=== PATIENT | female | born 1965 | race Caucasian/White ===

== ENCOUNTER 2019-07-13 22:26 | Observation (INO) | payer MEDICAID ==
[2019-07-13] MEDS ORDERED: SODIUM CHLORIDE 0.9% 2,000 ML IV STA (22:48)
[2019-07-13] MEDS ORDERED: ONDANSETRON 4 MG/2 ML VIAL IVP STA (22:48)
[2019-07-13 23:01] LABS: Basophils % (A) 0 %; Eosinophils # (A) 0.2 k/uL (0-0.7); Eosinophils % (A) 1 %; HCT 37.7 % (34.0-46.0); HGB 13.1 gm/dL (11.4-16.0); Lymphocytes % (A) 6 %; MCHC 34.8 g/dL (31.0-37.0); MCV 86.2 fL (80.0-100.0); Mean Platelet Volume 6.5; Monocytes # (A) 0.7 k/uL (0-1.0); Monocytes % (A) 4 %; Neutrophils # (A) 14.7 k/uL (1.3-7.7); Neutrophils % (A) 89 %; Platelet Count 381 k/uL (150-450); RBC 4.38 m/uL (3.80-5.40); RDW 12.5 % (11.5-15.5); WBC 16.6 k/uL (3.8-10.6)
[2019-07-13 23:10] LABS: ALT 18 U/L (9-52); AST 26 U/L (14-36); African American GFR (CKD) >90 (>60 ml/min/1.73 sqM); Albumin 4.6 g/dL (3.5-5.0); Alkaline Phosphatase 85 U/L (38-126); Amylase 107 U/L (30-110); Anion Gap 12 mmol/L; Blood Urea Nitrogen 10 mg/dL (7-17); Calcium 9.8 mg/dL (8.4-10.2); Carbon Dioxide 22 mmol/L (22-30); Chloride 105 mmol/L (98-107); Glucose 157 mg/dL (74-99); Potassium 4.1 mmol/L (3.5-5.1); Sodium 139 mmol/L (137-145); Total Bilirubin 0.4 mg/dL (0.2-1.3); Total Protein 7.7 g/dL (6.3-8.2)
--- NOTE | 2019-07-13 23:42 | ED ---
Abdominal Pain HPI - General Source: patient, RN notes reviewed Mode of arrival: ambulatory Limitations: no limitations <Zi Reed - Last Filed: 07/14/19 00:35> <Candice Angulo - Last Filed: 07/14/19 21:43> - General Chief Complaint: Abdominal Pain Stated Complaint: Rt flank pain Time Seen by Provider: 07/13/19 22:34 - History of Present Illness Initial Comments: 54-year-old female presents emergency Department chief complaint of right flank pain. Patient states that this pain started earlier today she had nonstop vomiting. Patient states that she's never had any pain like this in the past. No history kidney stones. Patient's had 3 sections no other abdominal surgeries. Patient reports no fevers chills she denies any known dysuria hematuria diarrhea constipation no chest pain or shortness of breath. Patient states that makes the pain feel better or worse at this time. (Zi Reed) - Related Data Previous Rx's Medication Instructions Recorded Hydrocodone/Acetaminophen [[place] 1 tab PO Q4HR PRN 3 Days #18 tab 07/14/19 5-325] Allergies Allergy/AdvReac Type Severity Reaction Status Date / Time No Known Allergies Allergy Verified 07/14/19 11:25 Review of Systems ROS Other: All systems not noted in ROS Statement are negative. <Zi Reed - Last Filed: 07/14/19 00:35> ROS Other: All systems not noted in ROS Statement are negative. <Candice Angulo - Last Filed: 07/14/19 21:43> ROS Statement: Those systems with pertinent positive or pertinent negative responses have been documented in the HPI. Past Medical History Past Medical History: Atrial Fibrillation, Asthma, Osteoarthritis (OA) Additional Past Medical History / Comment(s): irregular heart rate. has had low BP, constipation, blood in stool, hx anemia History of Any Multi-Drug Resistant Organisms: None Reported Past Surgical History: Back Surgery, Cardiac Ablation, Section, Heart Catheterization, Tonsillectomy, Tubal Ligation, Uterine Ablation Additional Past Surgical History / Comment(s): c6-c7 fusion, d&c, loop recorder Past Anesthesia/Blood Transfusion Reactions: Family History of Problems w/ Anesthesia Additional Past Anesthesia/Blood Transfusion Reaction / Comment(s): BROTHER HAS PONV. Past Psychological History: No Psychological Hx Reported Smoking Status: Never smoker Past Alcohol Use History: None Reported Past Drug Use History: None Reported - Past Family History Mother Family Medical History: Cancer, Deep Vein Thrombosis (DVT) Additional Family Medical History / Comment(s): BLADDER,PANCREATIC Father Family Medical History: Coronary Artery Disease (CAD) Additional Family Medical History / Comment(s): CABG-3 VESSELS Brother(s) Family Medical History: Coronary Artery Disease (CAD) Additional Family Medical History / Comment(s): 2 BROTHERS with stents <Zi Reed - Last Filed: 07/14/19 00:35> General Exam Limitations: no limitations General appearance: alert, in no apparent distress Head exam: Present: atraumatic, normocephalic, normal inspection Respiratory exam: Present: normal lung sounds bilaterally. Absent: respiratory distress, wheezes, rales, rhonchi, stridor Cardiovascular Exam: Present: regular rate, normal rhythm, normal heart sounds. Absent: systolic murmur, diastolic murmur, rubs, gallop, clicks GI/Abdominal exam: Present: soft, tenderness, normal bowel sounds. Absent: distended, guarding, rebound, rigid Back exam: Absent: CVA tenderness (R), CVA tenderness (L) Skin exam: Present: warm, dry, intact, normal color. Absent: rash <Zi Reed - Last Filed: 07/14/19 00:35> Course Vital Signs 07/13/19 07/13/19 07/14/19 22:30 23:08 00:00 Temperature 97.9 F 97.7 F Pulse Rate 65 64 78 Respiratory 20 16 16 Rate Blood Pressure 126/80 149/72 129/58 O2 Sat by Pulse 99 95 98 Oximetry Medical Decision Making - Lab Data Result diagrams: 07/13/19 22:46 07/13/19 22:46 <Zi Reed - Last Filed: 07/14/19 00:35> - Lab Data Result diagrams: 07/13/19 22:46 07/13/19 22:46 <Candice Angulo - Last Filed: 07/14/19 21:43> - Medical Decision Making 54-year-old female presented for right-sided abdominal pain and right flank pain. Patient did have labs and CT CT shows evidence of acute appendicitis. Patient was started on Zosyn. Patient will be admitted to Dr. Siegel as his PCP is Dr. Lima. Patient will be kept nothing by mouth (Zi Reed) Patient's primary care physician Dr. Lima prefers the patient be admitted to Dr. Franklin for surgical consult however Dr. Franklin unavailable this evening and Dr. Marie was consult that he accepts the admission. (Candice Angulo) - Lab Data Lab Results 07/13/19 07/13/19 07/13/19 Range/Units 22:46 22:46 22:46 WBC 16.6 H (3.8-10.6) k/uL RBC 4.38 (3.80-5.40) m/uL Hgb 13.1 (11.4-16.0) gm/dL Hct 37.7 (34.0-46.0) % MCV 86.2 (80.0-100.0) fL MCH 30.0 (25.0-35.0) pg MCHC 34.8 (31.0-37.0) g/dL RDW 12.5 (11.5-15.5) % Plt Count 381 (150-450) k/uL Neutrophils % 89 % Lymphocytes % 6 % Monocytes % 4 % Eosinophils % 1 % Basophils % 0 % Neutrophils # 14.7 H (1.3-7.7) k/uL Lymphocytes # 1.0 (1.0-4.8) k/uL Monocytes # 0.7 (0-1.0) k/uL Eosinophils # 0.2 (0-0.7) k/uL Basophils # 0.0 (0-0.2) k/uL Sodium 139 (137-145) mmol/L Potassium 4.1 (3.5-5.1) mmol/L Chloride 105 (98-107) mmol/L Carbon Dioxide 22 (22-30) mmol/L Anion Gap 12 mmol/L BUN 10 (7-17) mg/dL Creatinine 0.63 (0.52-1.04) mg/dL Est GFR (CKD-EPI)AfAm >90 (>60 ml/min/1.73 sqM) Est GFR (CKD-EPI)NonAf >90 (>60 ml/min/1.73 sqM) Glucose 157 H (74-99) mg/dL Plasma Lactic Acid Valdo 1.1 (0.7-2.0) mmol/L Calcium 9.8 (8.4-10.2) mg/dL Total Bilirubin 0.4 (0.2-1.3) mg/dL AST 26 (14-36) U/L ALT 18 (9-52) U/L Alkaline Phosphatase 85 (38-126) U/L Total Protein 7.7 (6.3-8.2) g/dL Albumin 4.6 (3.5-5.0) g/dL Amylase 107 (30-110) U/L Lipase 117 (23-300) U/L Disposition <Zi Reed M - Last Filed: 07/14/19 00:35> <Candice Angulo - Last Filed: 07/14/19 21:43> Clinical Impression: Acute appendicitis Disposition: ADMITTED IP TO THIS HOSP Condition: Fair
--- NOTE | 2019-07-14 00:09 | CT ---
INDICATION: Abdominal pain TECHNIQUE: CT acquisition is performed through the abdomen and pelvis following the administration of 85 mL Isovue-370 IV contrast. Sagittal and coronal reformatted images are provided. DOSE INFORMATION: DLP 669 mGy-cm. This CT exam was performed using one or more of the following dose reduction techniques: automated exposure control, adjustment of the mA and/or kV according to patient size, and/or use of iterative reconstruction technique. COMPARISON: None. FINDINGS: The lung bases are clear. The liver, gallbladder, spleen, pancreas, and adrenal glands are unremarkable. Aorta and IVC are normal. There is no adenopathy. There is no evidence of small or large bowel obstruction. The appendix is enlarged measuring 11 mm there is mild periappendiceal fat stranding. There is no free air or abscess. There are scattered colonic diverticula without evidence of acute diverticulitis. There is mild haziness of the urinary bladder wall. Uterus is unremarkable. There are no acute osseous findings. There is moderate degenerative disc disease at L5-S1. IMPRESSION: 1. Enlarged appendix measuring 11 mm with mild periappendiceal fat stranding. Findings could represent acute appendicitis in the proper clinical setting. 2. Haziness of the urinary bladder wall, correlate with urinalysis for possible cystitis. <MYCVCSECTION> Critical Value Communications 07/14/19 00:12 Call Doctor Regarding Appendicitis, called Dr. Angulo on 07/14 00:12 (-04:00)
[2019-07-14] MEDS ORDERED: PIPERACILLIN-TAZOBACTAM 3.375 GM in SODIUM CHLORIDE 0.9% 100 ML IVPB STA (00:18)
[2019-07-14] MEDS ORDERED: HYDROmorphone 1 MG/ML 1 ML SYRINGE IVP PRN (00:36)
[2019-07-14] MEDS ORDERED: NALOXONE 0.4 MG/ML 1 ML VIAL IV PRN (00:36)
[2019-07-14] MEDS ORDERED: ONDANSETRON 4 MG/2 ML VIAL IVP PRN ×2 (00:36→18:51)
[2019-07-14] MEDS: HYDROmorphone 0.5 MG/0.5 ML SYRINGE IVP PRN ×2 (00:40→14:08)
[2019-07-14 02:21] VITALS: BMI 24.7
[2019-07-14] MEDS: SODIUM CHLORIDE 0.9% 1,000 ML IV SCH ×3 (02:22→23:20)
[2019-07-14] MEDS: PIPERACILLIN-TAZOBACTAM 3.375 GM in SODIUM CHLORIDE 0.9% 100 ML IVPB SCH ×3 (07:34→23:19)
--- NOTE | 2019-07-14 08:01 | P.GSHP ---
<Reyna Mabry A - Last Filed: 07/14/19 07:58> History of Present Illness H&P Date: 07/14/19 Chief Complaint: abdominal pain CHIEF COMPLAINT: Abdominal pain HISTORY OF PRESENT ILLNESS: 54 year old female who presents to the hospital with a chief complaint of abdominal pain. She reports right lower quadrant pain that has been intermittent over the last week. Due to the pain coming and going, she did not seek medical evaluation. Yesterday, around noon the pain increased in severity and was constant. She reports nausea and multiple episodes of emesis yesterday. Denies fever at home. She is currently resting comfortably. She reports increased pain when she attempts to straighten her right leg. She rates her pain a 8/10 but reports just receiving Dilaudid which has been controlling her pain. PAST MEDICAL HISTORY: See list. PAST SURGICAL HISTORY: See list. SOCIAL HISTORY: No illicit drug use. REVIEW OF SYSTEMS: CONSTITUTIONAL: Denies fever or chills. HEENT: Denies blurred vision, vision changes, or eye pain. Denies hemoptysis CARDIOVASCULAR: Denies chest pain or pressure. RESPIRATORY: No shortness of breath. GASTROINTESTINAL: Refer to HPI for pertinent findings HEMATOLOGIC: Denies bleeding disorders. GENITOURINARY: Denies any blood in urine. SKIN: Denies pruitis. Denies rash. PHYSICAL EXAM: VITAL SIGNS: Reviewed. GENERAL: Well-developed in no acute distress. HEENT: No sclera icterus. Extraocular movements grossly intact. Moist buccal mucosa. Head is atraumatic, normocephalic. ABDOMEN: Soft. Nondistended. Tenderness to right lower quadrant. Positive bowel sounds. No signs of peritonitis. NEUROLOGIC: Alert and oriented. Cranial nerves II through XII grossly intact. LABORATORY DATA: Laboratory data upon admission reveals white count 16.6. Hemoglobin 13.1. Lactic acid 1.1. IMAGING: CT abdomen and pelvis: Enlarged appendix measuring 11 mm with mild periappendiceal fat stranding. Findings may represent acute appendicitis. ASSESSMENT: 1. Abdominal pain 2. Acute appendicitis 3. Leukocytosis PLAN: 1. Nothing by mouth. Continue IV fluids 2. Pain control 3. Continue antibiotics. Monitor WBC 4. Patient to undergo laparoscopic appendectomy today with Dr. Marie. Nurse practitioner note has been reviewed by physician. Signing provider agrees with the documented findings, assessment, and plan of care. Past Medical History Past Medical History: Atrial Fibrillation, Asthma, Osteoarthritis (OA) Additional Past Medical History / Comment(s): irregular heart rate. has had low BP, constipation, blood in stool, hx anemia History of Any Multi-Drug Resistant Organisms: None Reported Past Surgical History: Back Surgery, Cardiac Ablation, Section, Heart Catheterization, Tonsillectomy, Tubal Ligation, Uterine Ablation Additional Past Surgical History / Comment(s): c6-c7 fusion, d&c, loop recorder Past Anesthesia/Blood Transfusion Reactions: Family History of Problems w/ Anesthesia Additional Past Anesthesia/Blood Transfusion Reaction / Comment(s): BROTHER HAS PONV. Past Psychological History: No Psychological Hx Reported Smoking Status: Never smoker Past Alcohol Use History: None Reported Past Drug Use History: None Reported - Past Family History Mother Family Medical History: Cancer, Deep Vein Thrombosis (DVT) Additional Family Medical History / Comment(s): BLADDER,PANCREATIC Father Family Medical History: Coronary Artery Disease (CAD) Additional Family Medical History / Comment(s): CABG-3 VESSELS Brother(s) Family Medical History: Coronary Artery Disease (CAD) Additional Family Medical History / Comment(s): 2 BROTHERS with stents Medications and Allergies Home Medications Medication Instructions Recorded Confirmed Type Albuterol Inhaler [Ventolin Hfa 2 puff INHALATION Q4HR PRN 06/25/14 02/04/16 History Inhaler] Multivitamins, Thera [Multivitamin] 1 tab PO DAILY 01/30/16 02/04/16 History Allergies Allergy/AdvReac Type Severity Reaction Status Date / Time No Known Allergies Allergy Verified 07/13/19 22:31 Surgical - Exam Vital Signs Temp Pulse Resp BP Pulse Ox 97.9 F 65 20 126/80 99 07/13/19 22:30 07/13/19 22:30 07/13/19 22:30 07/13/19 22:30 07/13/19 22:30 Results - Labs 07/13/19 22:46 07/13/19 22:46 Abnormal Lab Results - Last 24 Hours (Table) 07/13/19 07/13/19 Range/Units 22:46 22:46 WBC 16.6 H (3.8-10.6) k/uL Neutrophils # 14.7 H (1.3-7.7) k/uL Glucose 157 H (74-99) mg/dL Diabetes panel 07/13/19 Range/Units 22:46 Sodium 139 (137-145) mmol/L Potassium 4.1 (3.5-5.1) mmol/L Chloride 105 (98-107) mmol/L Carbon Dioxide 22 (22-30) mmol/L BUN 10 (7-17) mg/dL Creatinine 0.63 (0.52-1.04) mg/dL Glucose 157 H (74-99) mg/dL Calcium 9.8 (8.4-10.2) mg/dL AST 26 (14-36) U/L ALT 18 (9-52) U/L Alkaline Phosphatase 85 (38-126) U/L Total Protein 7.7 (6.3-8.2) g/dL Albumin 4.6 (3.5-5.0) g/dL Calcium panel 07/13/19 Range/Units 22:46 Calcium 9.8 (8.4-10.2) mg/dL Albumin 4.6 (3.5-5.0) g/dL Pituitary panel 07/13/19 Range/Units 22:46 Sodium 139 (137-145) mmol/L Potassium 4.1 (3.5-5.1) mmol/L Chloride 105 (98-107) mmol/L Carbon Dioxide 22 (22-30) mmol/L BUN 10 (7-17) mg/dL Creatinine 0.63 (0.52-1.04) mg/dL Glucose 157 H (74-99) mg/dL Calcium 9.8 (8.4-10.2) mg/dL Adrenal panel 07/13/19 Range/Units 22:46 Sodium 139 (137-145) mmol/L Potassium 4.1 (3.5-5.1) mmol/L Chloride 105 (98-107) mmol/L Carbon Dioxide 22 (22-30) mmol/L BUN 10 (7-17) mg/dL Creatinine 0.63 (0.52-1.04) mg/dL Glucose 157 H (74-99) mg/dL Calcium 9.8 (8.4-10.2) mg/dL Total Bilirubin 0.4 (0.2-1.3) mg/dL AST 26 (14-36) U/L ALT 18 (9-52) U/L Alkaline Phosphatase 85 (38-126) U/L Total Protein 7.7 (6.3-8.2) g/dL Albumin 4.6 (3.5-5.0) g/dL <JjmarciKartik - Last Filed: 07/14/19 09:55> History of Present Illness As above. Patient with abdominal pain intermittently over the last week or so. Over the last 24 hours has had increased nausea vomiting and right lower quadrant pain persistently. White blood cell count is elevated. CAT scan reviewed and does show inflammatory changes of the appendix. We'll proceed with laparoscopic, possible open appendectomy at this time. Risks of bleeding, infection, abscess, bladder bowel and ureteral injury, conversion to an open procedure, hernia reviewed. She understands and wishes to proceed. Surgical - Exam Vital Signs Temp Pulse Resp BP Pulse Ox 97.9 F 65 20 126/80 99 07/13/19 22:30 07/13/19 22:30 07/13/19 22:30 07/13/19 22:30 07/13/19 22:30 Results - Labs 07/13/19 22:46 07/13/19 22:46 Abnormal Lab Results - Last 24 Hours (Table) 07/13/19 07/13/19 Range/Units 22:46 22:46 WBC 16.6 H (3.8-10.6) k/uL Neutrophils # 14.7 H (1.3-7.7) k/uL Glucose 157 H (74-99) mg/dL Diabetes panel 07/13/19 Range/Units 22:46 Sodium 139 (137-145) mmol/L Potassium 4.1 (3.5-5.1) mmol/L Chloride 105 (98-107) mmol/L Carbon Dioxide 22 (22-30) mmol/L BUN 10 (7-17) mg/dL Creatinine 0.63 (0.52-1.04) mg/dL Glucose 157 H (74-99) mg/dL Calcium 9.8 (8.4-10.2) mg/dL AST 26 (14-36) U/L ALT 18 (9-52) U/L Alkaline Phosphatase 85 (38-126) U/L Total Protein 7.7 (6.3-8.2) g/dL Albumin 4.6 (3.5-5.0) g/dL Calcium panel 07/13/19 Range/Units 22:46 Calcium 9.8 (8.4-10.2) mg/dL Albumin 4.6 (3.5-5.0) g/dL Pituitary panel 07/13/19 Range/Units 22:46 Sodium 139 (137-145) mmol/L Potassium 4.1 (3.5-5.1) mmol/L Chloride 105 (98-107) mmol/L Carbon Dioxide 22 (22-30) mmol/L BUN 10 (7-17) mg/dL Creatinine 0.63 (0.52-1.04) mg/dL Glucose 157 H (74-99) mg/dL Calcium 9.8 (8.4-10.2) mg/dL Adrenal panel 07/13/19 Range/Units 22:46 Sodium 139 (137-145) mmol/L Potassium 4.1 (3.5-5.1) mmol/L Chloride 105 (98-107) mmol/L Carbon Dioxide 22 (22-30) mmol/L BUN 10 (7-17) mg/dL Creatinine 0.63 (0.52-1.04) mg/dL Glucose 157 H (74-99) mg/dL Calcium 9.8 (8.4-10.2) mg/dL Total Bilirubin 0.4 (0.2-1.3) mg/dL AST 26 (14-36) U/L ALT 18 (9-52) U/L Alkaline Phosphatase 85 (38-126) U/L Total Protein 7.7 (6.3-8.2) g/dL Albumin 4.6 (3.5-5.0) g/dL
[2019-07-14] MEDS ORDERED: SODIUM CHLORIDE 0.9% 1,000 ML IV ONE (08:02)
[2019-07-14] MEDS ORDERED: IV FLUID CONTINUATION 400 ML IV ONE ×2 (09:34→09:36)
[2019-07-14] MEDS ORDERED: ONDANSETRON 4 MG/2 ML VIAL IVP ONE (09:45)
[2019-07-14] MEDS ORDERED: DEXAMETHASONE SOD PHOSPHATE 10 MG/ML 1 ML VIAL IV ONE (09:46)
[2019-07-14] MEDS ORDERED: HEPARIN SODIUM,PORCINE 5,000 UNIT/ML 1 ML VIAL SQ ONE (10:02)
[2019-07-14] MEDS ORDERED: BUPIVACAIN-EPI 0.25%-1:200,000 30 ML VIAL SQ ONE ×2 (10:06)
[2019-07-14] MEDS ORDERED: NEOSTIGMINE 1 MG/ML 10 ML VIAL ONE (10:07)
[2019-07-14] MEDS ORDERED: PHENYLEPHRINE-0.9% NACL SYG 1 MG/10 ML SYRINGE ONE (10:07)
[2019-07-14] MEDS ORDERED: PROPOFOL 10 MG/ML 20 ML VIAL IV ONE (10:07)
[2019-07-14] MEDS ORDERED: NALOXONE 0.4 MG/ML 1 ML VIAL ONE (10:07)
[2019-07-14] MEDS ORDERED: ROCURONIUM BROMIDE 10 MG/ML 10 ML VIAL IV ONE (10:07)
[2019-07-14] MEDS ORDERED: fentaNYL (PF) 50 MCG/ML 2 ML AMP ONE (10:07)
[2019-07-14] MEDS ORDERED: SUCCINYLCHOLINE CHLORIDE 100 MG/5 ML SYR IV ONE (10:07)
[2019-07-14] MEDS ORDERED: MIDAZOLAM 2 MG/2 ML VIAL ONE (10:07)
[2019-07-14] MEDS ORDERED: LIDOCAINE 1% INJ 10MG/ML (20 ML MDV) ONE (10:07)
[2019-07-14] MEDS ORDERED: GLYCOPYRROLATE 0.2 MG/ML 2 ML VIAL ONE (10:07)
[2019-07-14] MEDS ORDERED: LACTATED RINGERS 1,000 ML IV ONE (10:32)
[2019-07-14] MEDS: PANTOPRAZOLE 40 MG/10 ML VIAL IVP SCH (10:51)
[2019-07-14] MEDS ORDERED: HYDROcodone/APAP 7.5-325MG 1 EACH TAB PO PRN (11:08)
--- NOTE | 2019-07-14 11:19 | P.OP ---
Date of Procedure: 07/14/19 Procedure(s) Performed: PREOPERATIVE DIAGNOSIS: Acute appendicitis POSTOPERATIVE DIAGNOSIS: Same PROCEDURE: Laparoscopic appendectomy SURGEON: Frank EBL: 10 mL ANESTHESIA: General COMPLICATIONS: None OPERATIVE PROCEDURE: The patient was brought and placed on the operating table in the supine position. The patient was placed under general anesthesia. The abdomen was prepped and draped in the usual sterile fashion. A small vertical infraumbilical incision was made. The fascia was retracted anteriorly with [place] forceps. The Veress needle was advanced into the peritoneal cavity. The saline drop test was normal. Insufflation took place to 15 mmHg. A 5 mm trocar was then placed. An additional 5 mm suprapubic trocar was placed under direct visualization as well as a 12 mm left lower quadrant trocar under direct visualization. The appendix was inspected. It was acutely inflamed. The mesoappendix was dissected. The base of the appendix was divided using a linear 45 mm intestinal stapler. The mesentery itself was was divided using the ligature device. The area was then irrigated. No further purulence or bleeding was seen. The appendix was brought out of the peritoneal cavity through the left lower quadrant trocar site with an Endo Catch bag. The fascia at the 12 mm site was closed using a Hema-Lashaun [id number] 0 Vicryl stitch. The skin at all 3 sites was closed using 4-0 Monocryl sutures. Skin glue was then applied. DISPOSITION: Stable to recovery room
[2019-07-14] MEDS: KETOROLAC 30 MG/ML 1 ML VIAL IVP SCH ×3 (13:08→23:23)
[2019-07-14] MEDS: HEPARIN SODIUM,PORCINE 5,000 UNIT/ML 1 ML VIAL SQ SCH ×2 (17:13→23:19)
[2019-07-14] MEDS ORDERED: METOCLOPRAMIDE 5 MG/ML 2 ML VIAL IVP PRN (18:48)
--- NOTE | 2019-07-14 20:06 | CONS ---
CONSULTATION I am covering for Dr. Lima. DATE OF SERVICE: 07/14/2019 REASON FOR CONSULTATION: Advice regarding atrial fibrillation and other medical issues, requested by Dr. Marie. HISTORY OF PRESENT ILLNESS: This 54-year-old woman with a past medical history of atrial fibrillation, history of asthma, DJD, history of cardiac ablation, being followed by Dr. Dl Lima in the outpatient setting, underwent laparoscopic appendectomy for acute appendicitis. The patient is being closely monitored at this time. There is no history of any chest pain, history of history of palpitations, headache, loss of consciousness, nausea, vomiting, diarrhea, fever, rigors, chills at this time. PAST MEDICAL HISTORY: 1. Atrial fibrillation. 2. Asthma. 3. DJD. 4. History of back surgery. 5. Cardiac ablation. MEDICATIONS: [place] 5 mg q.4 p.r.n. ALLERGIES: NONE. FAMILY HISTORY: History of cancer, bladder, pancreatic. DVT. SOCIAL HISTORY: No history of smoking. No history of alcohol. REVIEW OF SYSTEMS: ENT: No diminished hearing. No diminished vision. CARDIOVASCULAR SYSTEM: No angina, palpitations. RESPIRATORY SYSTEM: No cough, hemoptysis. GI: As mentioned earlier. : No dysuria or retention. NERVOUS SYSTEM: No numbness, weakness. ALLERGY/IMMUNOLOGY: As mentioned earlier. MUSCULOSKELETAL: As mentioned earlier. HEMATOLOGY/ONCOLOGY: No history of anemia. ENDOCRINE: No history of diabetes, hypothyroidism. CONSTITUTIONAL: As mentioned earlier. DERMATOLOGY: Negative. RHEUMATOLOGY: Negative. PSYCHIATRY: As mentioned earlier. PHYSICAL EXAMINATION: Patient alert and oriented x3. Pulse 59, blood pressure 107/64, respirations 16, temperature 97.4, pulse ox 98% on room air. HEENT: Conjunctivae normal. Oral mucosa moist. NECK: No jugular venous distention. No carotid bruit. No lymph node enlargement. CARDIOVASCULAR SYSTEM: S1, S2 muffled. No S3. No S4. RESPIRATORY SYSTEM: Breath sounds diminished at the bases. No rhonchi. No crackles. ABDOMEN: Soft. Status post surgery. No guarding or rigidity. No mass palpable. LEGS: No edema. No swelling. NERVOUS SYSTEM: Higher functions as mentioned earlier. Moves all 4 limbs. No focal motor or sensory deficit. LYMPHATICS: No lymph node palpable in neck, axillae or groin. SKIN: No ulcer, rash, bleeding. JOINTS: No active deforming arthropathy. LABS: Labs at this time show WBC 16.6, hemoglobin 13.1 and glucose 157. ASSESSMENT: 1. Acute appendicitis, status post laparoscopic appendectomy. 2. Increased white count. 3. Increased random blood sugar. 4. History of atrial fibrillation, paroxysmal. 5. History of asthma, chronic, intermittent. 6. History of degenerative joint disease. 7. History of constipation. 8. History of back surgery, degenerative joint disease. 9. History of cardiac ablation. 10.History of C6-7 fusion. 11.History of loop recorder. 12.FULL CODE. RECOMMENDATIONS AND DISCUSSION: In this 54-year-old woman who presented after surgery, at this time I recommend to continue current management, continue symptomatic treatment. Resume the home medications. Monitor closely. Patient currently appears to be in sinus rhythm. Broad- spectrum IV antibiotics initiated. We will follow the patient closely with Dr. Marie. Further recommendations to follow. A copy of this dictation is being forwarded to Dr. Lima, who is the primary physician. DVT prophylaxis. Proton pump inhibitors. Incentive spirometry. MMODL / IJN: [id number] /
[2019-07-14 23:36] LABS: Appearance,Urine Clear (Clear); Bilirubin,Urine Negative (Negative); Blood,Urine Negative (Negative); Color,Urine Light Yellow; Glucose,Urine (UA) Negative (Negative); Ketones,Urine Negative (Negative); Leukocyte Esterase,Urine Negative (Negative); Nitrite,Urine Negative (Negative); Protein,Urine Negative (Negative); Specific Gravity,Urine 1.006 (1.001-1.035); Urobilinogen,Urine <2.0 mg/dL (<2.0)
[2019-07-15] MEDS: KETOROLAC 30 MG/ML 1 ML VIAL IVP SCH ×4 (05:56→23:54)
[2019-07-15] MEDS: PIPERACILLIN-TAZOBACTAM 3.375 GM in SODIUM CHLORIDE 0.9% 100 ML IVPB SCH ×3 (08:05→23:54)
[2019-07-15] MEDS: HEPARIN SODIUM,PORCINE 5,000 UNIT/ML 1 ML VIAL SQ SCH ×3 (08:05→23:54)
[2019-07-15] MEDS: PANTOPRAZOLE 40 MG/10 ML VIAL IVP SCH (08:05)
[2019-07-15] MEDS: SODIUM CHLORIDE 0.9% 1,000 ML IV SCH ×3 (08:06→23:54)
[2019-07-15 08:08] LABS: Basophils % (A) 0 %; Eosinophils % (A) 0 %; HCT 30.4 % (34.0-46.0); HGB 10.3 gm/dL (11.4-16.0); Lymphocytes # (A) 1.5 k/uL (1.0-4.8); Lymphocytes % (A) 17 %; MCH 29.9 pg (25.0-35.0); MCHC 33.8 g/dL (31.0-37.0); MCV 88.3 fL (80.0-100.0); Monocytes # (A) 0.6 k/uL (0-1.0); Monocytes % (A) 6 %; Neutrophils # (A) 6.7 k/uL (1.3-7.7); Neutrophils % (A) 75 %; Platelet Count 295 k/uL (150-450); RBC 3.44 m/uL (3.80-5.40); RDW 13.3 % (11.5-15.5)
[2019-07-15 08:33] LABS: African American GFR (CKD) >90 (>60 ml/min/1.73 sqM); Anion Gap 7 mmol/L; Blood Urea Nitrogen 6 mg/dL (7-17); Calcium 8.3 mg/dL (8.4-10.2); Carbon Dioxide 24 mmol/L (22-30); Chloride 110 mmol/L (98-107); Glucose 77 mg/dL (74-99); Potassium 3.8 mmol/L (3.5-5.1); Sodium 141 mmol/L (137-145)
[2019-07-15] MEDS ORDERED: traMADol 50 MG TAB PO PRN (09:41)
--- NOTE | 2019-07-15 09:43 | P.PN ---
Subjective Progress Note Date: 07/15/19 Principal diagnosis: Appendicitis Patient is doing better today. She still had bad nausea last night. That seems to have improved. She would like to try more to eat. She is not ready to go home today she states. White blood cell count normal. Objective - Vital Signs Vital signs: Vital Signs Temp 98.5 F 07/15/19 07:00 Pulse 67 07/15/19 07:00 Resp 16 07/15/19 07:00 BP 104/62 07/15/19 07:00 Pulse Ox 96 07/15/19 07:00 Intake & Output 07/14/19 07/15/19 07/15/19 18:59 06:59 18:59 Intake Total 2840 1490 240 Output Total 405 Balance 2435 1490 240 Intake: IV 1300 Intake, IV Titration 1100 1250 Amount Piperacillin-Tazobactam 3 100 .375 gm In Sodium Chloride 0.9% 100 ml @ 25 mls/hr IVPB Q8HR KO Rx# :[id number] Sodium Chloride 0.9% 1, 1250 000 ml @ 125 mls/hr IV . Q8H KO Rx#:[id number] Sodium Chloride 0.9% 2, 1000 000 ml @ 999 mls/hr IV . Q2H1M STA Rx#:[id number] Oral 440 240 240 Output: Urine 400 Estimated Blood Loss 5 Other: # Voids 2 1 - Exam Abdomen: Soft, nondistended, incisions clean and dry, mild tenderness - Labs CBC & Chem 7: 07/15/19 07:10 07/15/19 07:10 Labs: Abnormal Lab Results - Last 24 Hours (Table) 07/15/19 07/15/19 Range/Units 07:10 07:10 RBC 3.44 L (3.80-5.40) m/uL Hgb 10.3 L (11.4-16.0) gm/dL Hct 30.4 L (34.0-46.0) % Chloride 110 H (98-107) mmol/L BUN 6 L (7-17) mg/dL Calcium 8.3 L (8.4-10.2) mg/dL Assessment and Plan (1) Acute appendicitis Narrative/Plan: Patient doing better today. Advance diet. At Ultram for pain. Current Visit: Yes Status: Acute Code(s): K35.80 - UNSPECIFIED ACUTE APPENDICITIS SNOMED Code(s): 72588706
--- NOTE | 2019-07-15 17:16 | PN ---
PROGRESS NOTE DATE OF SERVICE: 07/15/2019 I am covering for Dr. Lima. This is a 54-year-old woman who was admitted after laparoscopic appendectomy is improving significantly. No chest pain. No palpitations. No fever. Dr. Marie is following the patient closely. The patient had some nausea last night. EXAM: Alert and oriented x3. Pulse is 67. Blood pressure 104/60, respirations 16, temperature is 98.2, pulse ox 98% on room air. HEENT: Conjunctivae normal. NECK: No jugular venous distention. CARDIOVASCULAR: S1, S2 muffled. RESPIRATORY: Breath sounds diminished in the bases. No rhonchi. No crackles. ABDOMEN: Soft. Status post surgery. LEGS are no edema. No swelling. CENTRAL NERVOUS SYSTEM: No focal deficits. LABS: WBC 19.1, hemoglobin 10.3. UA noted. ASSESSMENT: 1. Acute appendicitis, status post laparoscopic appendectomy. 2. Increased WBC. 3. Increased random blood sugar. 4. Postoperative nausea. 5. History of atrial fibrillation, paroxysmal. 6. History of asthma, chronic intermittent. 7. History of degenerative joint disease. 8. History of constipation. 9. History of back surgery, degenerative joint disease. 10.History of cardiac ablation. 11.History of C6-7 fusion. 12.History of loop recorder. 13.FULL CODE. RECOMMENDATIONS AND DISCUSSION: Recommend to continue current medications, continue monitoring, management and symptomatic treatment. Otherwise, at this time I recommend continue with IV fluids. Monitor blood pressure closely and further recommendations to follow. The patient is on broad-spectrum IV antibiotics. Closely follow with surgery. See orders for details. MMODL / IJN: [id number] /
[2019-07-15 19:26] LABS: Hemoglobin A1C 5.2 % (4.0-6.0)
[2019-07-15 20:43] VITALS: RESP 16
[2019-07-16 01:22] VITALS: PULSE 75
[2019-07-16] MEDS: KETOROLAC 30 MG/ML 1 ML VIAL IVP SCH (06:10)
[2019-07-16 07:38] VITALS: BP 118/74; TEMP 98.9
[2019-07-16 07:58] LABS: Basophils # (A) 0.1 k/uL (0-0.2); Basophils % (A) 1 %; Eosinophils # (A) 0.2 k/uL (0-0.7); Eosinophils % (A) 3 %; HCT 32.9 % (34.0-46.0); HGB 10.6 gm/dL (11.4-16.0); Lymphocytes # (A) 1.6 k/uL (1.0-4.8); Lymphocytes % (A) 29 %; MCHC 32.2 g/dL (31.0-37.0); MCV 89.9 fL (80.0-100.0); Mean Platelet Volume 6.5; Monocytes # (A) 0.4 k/uL (0-1.0); Monocytes % (A) 7 %; Neutrophils # (A) 3.2 k/uL (1.3-7.7); Neutrophils % (A) 59 %; Platelet Count 262 k/uL (150-450); RBC 3.66 m/uL (3.80-5.40); RDW 12.8 % (11.5-15.5); WBC 5.5 k/uL (3.8-10.6)
[2019-07-16 08:18] LABS: African American GFR (CKD) >90 (>60 ml/min/1.73 sqM); Anion Gap 7 mmol/L; Blood Urea Nitrogen 6 mg/dL (7-17); Calcium 8.4 mg/dL (8.4-10.2); Carbon Dioxide 22 mmol/L (22-30); Chloride 113 mmol/L (98-107); Glucose 107 mg/dL (74-99); Sodium 142 mmol/L (137-145)
[2019-07-16] MEDS: SODIUM CHLORIDE 0.9% 1,000 ML IV SCH (08:26)
[2019-07-16] MEDS: HEPARIN SODIUM,PORCINE 5,000 UNIT/ML 1 ML VIAL SQ SCH (08:26)
[2019-07-16] MEDS: PIPERACILLIN-TAZOBACTAM 3.375 GM in SODIUM CHLORIDE 0.9% 100 ML IVPB SCH (08:26)
[2019-07-16] MEDS ORDERED: PANTOPRAZOLE 40 MG TABLET PO SCH (09:00)
--- NOTE | 2019-07-16 10:31 | P.DS ---
Providers Date of admission: 07/14/19 01:17 Expected date of discharge: 07/16/19 Attending physician: Kartik Marie Consults: 07/14/19 01:16 Consult Physician Routine Consulting Provider: Rainer Siegel Consult Reason/Comments: PCP preference Do you want consulting provider notified?: Yes, Notify in am 07/14/19 11:20 Consult Physician Routine Consulting Provider: Dl Lima Consult Reason/Comments: Medical management Do you want consulting provider notified?: Yes Primary care physician: Dl Lima - Discharge Diagnosis(es) (1) Acute appendicitis Patient admitted through the ER with acute appendicitis. She underwent laparoscopic appendectomy 2 days ago. Postop with the patient had significant nausea and vomiting. This is actually present preoperatively. She is anxious to go home today. Will plan follow-up in the office 1 week. Current Visit: Yes Status: Acute Patient Condition at Discharge: Fair Plan - Discharge Summary Discharge Rx Participant: Yes New Discharge Prescriptions: New Hydrocodone/Acetaminophen [[place] 5-325] 1 tab PO Q4HR PRN 3 Days #18 tab PRN Reason: Pain Discharge Medication List Hydrocodone/Acetaminophen [[place] 5-325] 1 tab PO Q4HR PRN 3 Days #18 tab 07/14/19 [Rx] Follow up Appointment(s)/Referral(s): Kartik Marie MD [Medical Doctor] - 1 Week Dl Lima DO [Primary Care Provider] - 1-2 days Activity/Diet/Wound Care/Special Instructions: No driving while taking [place] No lifting over 10 pounds You may shower. No soaking or tub baths Very light activity until you are reevaluated at your follow up appointment with your surgeon
--- NOTE | 2019-07-16 21:57 | PN ---
PROGRESS NOTE DATE OF SERVICE: 07/16/2019. I am covering for Dr. Lima. This 54-year-old woman was admitted with laparoscopic appendectomy, is improving significantly. No chest pain. No palpitations. No fever. PHYSICAL EXAM: Alert and oriented times three. Pulse 75, blood pressure 118/74, respirations 16, temperature 98.9, pulse ox 94% on room air. HEENT: Conjunctivae normal. NECK: No jugular venous distention. CARDIOVASCULAR: S1, S2 muffled. RESPIRATION: Breath sounds diminished in the bases. No rhonchi. No crackles. ABDOMEN is soft. Status post surgery. LEGS are no edema. No swelling. CENTRAL NERVOUS SYSTEM: No focal deficits. LAB STUDIES: WBC 5.5, hemoglobin 10.6, and chloride is 113. ASSESSMENT: 1. Acute appendicitis, status post laparoscopic appendectomy. 2. Increased WBC. 3. Increased random blood sugar. 4. Postoperative nausea improved. 5. History of atrial fibrillation, paroxysmal. 6. History of asthma, chronic, intermittent. 7. History of degenerative joint disease. 8. History of constipation. 9. History of back surgery, degenerative joint disease. 10.History of cardiac ablation. 11.History of C6 fusion. 12.History of loop recorder. 13.FULL CODE. RECOMMENDATIONS AND DISCUSSION: Recommend to continue current medications, symptomatic treatment, and resume the home medications. Incentive spirometry. DVT prophylaxis. Otherwise recommend close followup with Dr. Lima in 1-2 weeks or p.r.n. Rest of the recommendations per surgery. Further recommendations to follow. MMODL / IJN: [id number] /
== END 2019-07-16 12:48 | disposition home or self-care (01) ==
LOC: EC 22:26 → 4SSUR 07-14 01:17
PROVIDERS: ADMIT Surgery; ATTEND Surgery
DX: K35.30 Acute appendicitis with localized peritonitis, without perforation or gangrene (principal); I48.0 Paroxysmal atrial fibrillation; K59.00 Constipation, unspecified; J45.20 Mild intermittent asthma, uncomplicated; K91.89 Other postprocedural complications and disorders of digestive system; R11.2 Nausea with vomiting, unspecified; D64.9 Anemia, unspecified; M19.90 Unspecified osteoarthritis, unspecified site; Z98.1 Arthrodesis status; Z98.51 Tubal ligation status; Z82.49 Family history of ischemic heart disease and other diseases of the circulatory system; Z83.2 Family history of diseases of the blood and blood-forming organs and certain disorders involving the immune mechanism; Z80.52 Family history of malignant neoplasm of bladder; Z80.0 Family history of malignant neoplasm of digestive organs
CPT/HCPCS: 44970; 96376; 96374; 96375; 99285; 36415; 88304; 80053; 80048 ×2; 82150; 83605; 83690; 85025 ×3; 81003; 83036; 74177; G0378 ×3; J2543 ×3; J2250; J1644 ×3; J1100; J2310; J2710; J2765; J2405 ×3; J2001; J3010; J1885 ×3; J1170 ×2; J2370; J0330; J2704; C9113; Q9967

== ENCOUNTER → 2020-06-20 | Day surgery (SDC) | payer MEDICAID ==
[2020-06-20 09:47] VITALS: RESP 16; TEMP 97.5
[2020-06-20 11:13] VITALS: BP 126/79; PULSE 77
--- NOTE | 2020-06-20 11:17 | USB ---
EXAMINATION TYPE: US breast aspiration single RT DATE OF EXAM: 06/20/2020 HISTORY: Right breast cyst, abnormal mammogram. FINDINGS: Maximal barrier technique was utilized. Hand hygiene achieved with soap and water. The ski n overlying a suitable path to the patient's mass in the right breast 9:00 position was localized wit h ultrasound and the overlying skin prepped and draped. Ultrasound was utilized with sterile techniq ue. Lidocaine was used for local anesthesia. An 18-gauge needle was advanced under direct ultrasoun d guidance and aspiration obtained of the cystic lesion. Single drop of dark-colored fluid was obtain ed in the hub of the needle, the cystic lesion was no longer evident. Following the procedure, hemos tasis achieved and the patient is discharged in stable condition without complication. IMPRESSION:STATUS POST ULTRASOUND GUIDED CYST ASPIRATION OF right breast cyst, follow-up right breast ultrasound in 6 months. THIS PROCEDURE IS PERFORMED BY THE UNDERSIGNED.
== END ==
LOC: RADUSWWP 08:36
PROVIDERS: ATTEND Surgery
DX: N60.01 Solitary cyst of right breast (principal)
CPT/HCPCS: 76942; 19000; J2001

== ENCOUNTER → 2020-12-23 | Outpatient (CLI) | payer MEDICAID ==
--- NOTE | 2020-12-23 13:46 | MM ---
Reason for exam: additional evaluation requested from prior study. Last mammogram was performed 1 year ago. History: Family history of breast cancer in 2 grandmothers and breast cancer in aunt. US breast aspiration single RT of the right breast, June 20, 2020. Physical Findings: Nurse did not find any significant physical abnormalities on exam. MG 3D Diag Mammo W/Cad ALEXANDER Bilateral CC and MLO view(s) were taken. Prior study comparison: December 28, 2019, mammogram, performed at [facility]. December 12, 2019, mammogram, performed at [facility]. The breast tissue is heterogeneously dense. This may lower the sensitivity of mammography. Stable benign calcifications. There is chronic nodularity bilaterally. There is no dominant lesion. No significant new findings when compared with previous films. These results were verbally communicated with the patient and result sheet given to the patient on 12/23/20. ASSESSMENT: Benign, BI-RAD 2 RECOMMENDATION: Routine screening mammogram of both breasts in 1 year.
== END | disposition home or self-care (01) ==
LOC: RADMAMWWP 12:59
PROVIDERS: ATTEND Surgery
DX: R92.8 Other abnormal and inconclusive findings on diagnostic imaging of breast (principal)
CPT/HCPCS: 77062; 77066

== ENCOUNTER → 2021-03-03 | Outpatient (CLI) | payer MEDICAID ==
[2021-03-03 19:28] LABS: African American GFR (CKD) 113.8 (60.0-200.0); Albumin 4.7 g/dL (3.80-4.90); Albumin/Globulin Ratio 2.24 (1.60-3.17); Anion Gap 5.6 mmol/L (4.00-12.00); BUN/Creat Ratio 14.29 Ratio (12.00-20.00); Calcium 9.5 mg/dL (8.7-10.3); Carbon Dioxide 28.4 mmol/L (21.6-31.8); Chol/HDL Ratio 4.06; Globulin 2.1 g/dL (1.6-3.3); LDL Cholesterol,Calculated 173.6 mg/dL (0.0-131.0); Non-African American GFR(CKD) 98.2 (60.0-200.0); Potassium 4.4 mmol/L (3.5-5.5); Total Bilirubin 0.5 mg/dL (0.2-1.2); Total Protein 6.8 g/dL (6.2-8.2); VLDL Calculation 19.4 mg/dL (5.00-40.00)
== END | disposition home or self-care (01) ==
LOC: LABWHC1 10:09
PROVIDERS: ATTEND Internal Medicine Clinical Cardiac Electrophysiology
DX: I47.1 Supraventricular tachycardia (principal); E78.5 Hyperlipidemia, unspecified; I49.3 Ventricular premature depolarization
CPT/HCPCS: 36415; 80053; 80061; 84443

== ENCOUNTER 2021-03-10 15:08 | Day surgery (SDC) | payer MEDICAID ==
[~2021-03-10 15:08] MED LIST: SODIUM CHLORIDE 0.9% 1,000 ML IV SCH; ceFAZolin 1,000 MG in SODIUM CHLORIDE 0.9% IRRIGATIO 250 ML IRRIGATION ONE
[2021-03-10] MEDS ORDERED: SODIUM CHLORIDE 0.9% 500 ML 500 ML IV ONE (15:26)
[2021-03-10 15:47] VITALS: RESP 16; TEMP 97.9
[2021-03-10] MEDS ORDERED: LIDOCAINE 1% INJ 10MG/ML (20 ML MDV) SQ ONE (17:32)
[2021-03-10 18:03] VITALS: BP 139/78; PULSE 78
--- NOTE | 2021-03-10 19:35 | P.EPPROC ---
- EP Procedure Note Electrophysiology Procedure Note: Diagnosis [employer] reveal implant at [facility], normal battery depletion Procedure: Loop explant under local anesthesia. Diagnosis: Loop monitor at [facility] Patient was brought to the EP lab in a fasting state. Written informed consent was obtained prior to the procedure. The subcutaneous device was successfully explanted under local anesthesia. Preoperative antibiotics were administered. The wound was closed in layers and dressed per protocol. Result: Successful loop monitor explantation. Under local anesthesia only
== END 2021-03-10 18:27 | disposition home or self-care (01) ==
LOC: CATHEP 15:08
PROVIDERS: ATTEND Internal Medicine Clinical Cardiac Electrophysiology
DX: Z45.09 Encounter for adjustment and management of other cardiac device (principal); R00.2 Palpitations; I47.1 Supraventricular tachycardia; I49.3 Ventricular premature depolarization; Z82.49 Family history of ischemic heart disease and other diseases of the circulatory system; E78.5 Hyperlipidemia, unspecified; G90.1 Familial dysautonomia [Riley-Day]
CPT/HCPCS: 33286; J0690; J2001

== ENCOUNTER 2021-09-19 12:44 | Emergency (ER) | payer MEDICAID ==
[2021-09-19 14:14] VITALS: BP 149/79; PULSE 100; RESP 20; TEMP 98.8
[2021-09-19] MEDS ORDERED: CIPROFLOXACIN-DEXAMETH 0.3-0.1% DROPS 7.5 ML BTL LEFT EAR STA (15:18)
[2021-09-19] MEDS ORDERED: AMOXIC-POT CLAV 875MG STARTER PACK 2 TAB BTL PO STA (15:19)
--- NOTE | 2021-09-19 15:21 | ED ---
ENT HPI - General Chief complaint: ENT Stated complaint: Sore throat, L ear pain, & Jaw pain Time Seen by Provider: 09/19/21 14:47 Source: patient, RN notes reviewed Mode of arrival: ambulatory Limitations: no limitations - History of Present Illness Initial comments: 56-year-old female presents emergency Department chief complaint left ear pain. Patient states that this started last day or so. Patient's had recurrent ear infections. Patient's pain is rating down by her jaw, side of her neck. Denies any headache dizziness neck stiffness. She has no difficulty swallowing. Patient reports subjective fevers and chills no other associated complaints. - Related Data Home Medications Medication Instructions Recorded Confirmed Albuterol Inhaler [Ventolin Hfa 1 puff INHALATION RT-TID PRN 06/17/20 03/10/21 Inhaler] Cetirizine HCl [Zyrtec] 10 mg PO DAILY 06/17/20 03/10/21 Previous Rx's Medication Instructions Recorded Amoxicillin/Potassium Clav 1 tab PO Q12HR #20 tab 09/19/21 [Augmentin 875-125 Tablet] Allergies Allergy/AdvReac Type Severity Reaction Status Date / Time No Known Allergies Allergy Verified 09/19/21 14:14 Review of Systems ROS Statement: Those systems with pertinent positive or pertinent negative responses have been documented in the HPI. ROS Other: All systems not noted in ROS Statement are negative. Past Medical History Past Medical History: Atrial Fibrillation, Asthma, Osteoarthritis (OA) Additional Past Medical History / Comment(s): irregular heart rate. has had low BP, constipation, blood in stool, hx anemia History of Any Multi-Drug Resistant Organisms: None Reported Past Surgical History: Back Surgery, Cardiac Ablation, Section, Heart Catheterization, Tonsillectomy, Tubal Ligation, Uterine Ablation Additional Past Surgical History / Comment(s): c6-c7 fusion, d&c, loop recorder Past Anesthesia/Blood Transfusion Reactions: Family History of Problems w/ Anesthesia Additional Past Anesthesia/Blood Transfusion Reaction / Comment(s): BROTHER HAS PONV. Past Psychological History: No Psychological Hx Reported Smoking Status: Never smoker Past Alcohol Use History: None Reported Past Drug Use History: None Reported - Past Family History Mother Family Medical History: Cancer, Deep Vein Thrombosis (DVT) Additional Family Medical History / Comment(s): BLADDER,PANCREATIC Father Family Medical History: Coronary Artery Disease (CAD) Additional Family Medical History / Comment(s): CABG-3 VESSELS Brother(s) Family Medical History: Coronary Artery Disease (CAD) Additional Family Medical History / Comment(s): 3 BROTHERS with stents General Exam Limitations: no limitations General appearance: alert, in no apparent distress Head exam: Present: atraumatic, normocephalic, normal inspection Eye exam: Present: normal appearance, PERRL, EOMI. Absent: scleral icterus, conjunctival injection, periorbital swelling ENT exam: Present: normal oropharynx, mucous membranes moist. Absent: normal exam, TM's normal bilaterally (Left TM erythematous, bulging), normal external ear exam (Left exudates) Neck exam: Present: normal inspection, full ROM. Absent: tenderness, menin gismus, lymphadenopathy Respiratory exam: Present: normal lung sounds bilaterally. Absent: respiratory distress, wheezes, rales, rhonchi, stridor Cardiovascular Exam: Present: regular rate, normal rhythm, normal heart sounds. Absent: systolic murmur, diastolic murmur, rubs, gallop, clicks Course Vital Signs 09/19/21 14:11 Temperature 98.8 F Pulse Rate 100 Respiratory 20 Rate Blood Pressure 149/79 O2 Sat by Pulse 97 Oximetry Medical Decision Making - Medical Decision Making Patient started on oral and topical antibiotics. Disposition Clinical Impression: Otitis externa, Otitis media Disposition: HOME SELF-CARE Condition: Stable Instructions (If sedation given, give patient instructions): Earache (ED) Additional Instructions: Please return to the Emergency Department if symptoms worsen or any other concerns. Use Ciprodex eardrops 4 drops twice daily for 7 days Prescriptions: Amoxicillin/Potassium Clav [Augmentin 875-125 Tablet] 1 tab PO Q12HR #20 tab Is patient prescribed a controlled substance at d/c from ED?: No Referrals: Dl Lima DO [Primary Care Provider] - 1-2 days Time of Disposition: 15:21
== END 2021-09-19 15:32 | disposition home or self-care (01) ==
LOC: EC 12:44
DX: H60.92 Unspecified otitis externa, left ear (principal); H66.92 Otitis media, unspecified, left ear; J45.909 Unspecified asthma, uncomplicated
CPT/HCPCS: 99283